=== PATIENT | male | born 2000 | race Caucasian/White ===

== ENCOUNTER 2024-02-08 08:32 | Outpatient (OUT) | payer OTHER, SELFPAY ==
--- NOTE | 2024-02-08 | XR_ITS ---
The [address] [address] Patient Name: LANI ROMANO MRN: [id number] date: 2000 Sex: M Assigned Patient Location: Current Patient Location: Accession/Order Number: [id number] Exam Date: 02/08/2024 08:57 Report Date: 02/09/2024 09:24 At the request of: VILMA CYR Procedure: XR ankle RT min 3V PROCEDURE: XR ankle RT min 3V COMPARISON: None. HISTORY: RIGHT ANKLE PAIN FINDINGS: BONES:Pes planus. Plantar enthesopathic spurring of the calcaneus. Marginal osteophyte formation of the midfoot/hindfoot SOFT TISSUES:Moderate diffuse soft tissue swelling EFFUSION:None visible. OTHER: Negative. XR/XR ankle RT min 3V IMPRESSION: Soft tissue swelling, no acute fracture Electronically authenticated by: ÁLVARO LOZANO Date: 02/09/2024 09:24
== END 2024-02-08 08:33 | disposition home or self-care (01) ==
PROVIDERS: Visit Provider Orthopaedic Surgery
DX: M25.571 Pain in right ankle and joints of right foot (principal)
CPT/HCPCS: 73610